=== PATIENT | male | born 1995 | race Caucasian/White ===

== ENCOUNTER 2018-06-06 21:18 | Emergency (ER) | payer BC ==
[2018-06-06] MEDS ORDERED: Cephalexin CAP* 500 MG PO ONE (21:33)
[2018-06-06] MEDS ORDERED: Lidocaine 1%* 5 ML VIAL INJ ONE (21:33)
--- NOTE | 2018-06-06 21:38 | ED ---
Laceration/Wound HPI - HPI Summary HPI Summary: 22-year-old male presents with laceration to his right hand yesterday. He states he put his hand on some glass accidental. He states he removed some glass today. He states he has no medical conditions beside acne. He states tomorrow he will be starting doxycycline 100 milligrams once a day for his acne. He denies any fever. He feels that there is glass is one of the wounds. tetanus is up-to-date. Has full range of motion of his hand. He is right- handed. - History of Current Complaint Stated Complaint: GLASS IN RT HAND Time Seen by Provider: 06/06/18 21:29 Pain Intensity: 2 - Allergy/Home Medications Allergies/Adverse Reactions: Allergies Allergy/AdvReac Type Severity Reaction Status Date / Time shellfish Allergy Unknown Uncoded 06/06/18 21:21 Reaction Details PMH/Surg Hx/FS Hx/Imm Hx Endocrine/Hematology History: Denies: Hx Anticoagulant Therapy Cardiovascular History: Denies: Hx Myocardial Infarction Infectious Disease History: No Infectious Disease History: Denies: Traveled Outside the [place] in Last 30 Days - Family History Known Family History: Negative: Diabetes - Social History Alcohol Use: Occasionally Substance Use Type: Reports: None Smoking Status (MU): Never Smoked Tobacco Review of Systems Negative: Fever Negative: Chest Pain Negative: Shortness Of Breath Positive: Other - laceration right hand All Other Systems Reviewed And Are Negative: Yes Physical Exam Triage Information Reviewed: Yes Vital Signs On Initial Exam: Initial Vitals Temp Pulse Resp BP Pulse Ox 97.8 F 52 16 141/64 98 06/06/18 21:22 06/06/18 21:22 06/06/18 21:22 06/06/18 21:22 06/06/18 21:22 Vital Signs Reviewed: Yes Appearance: Positive: Well-Appearing Skin: Positive: Other - 3 2cm superficial lacerations to palm, 1cm puncture type wound palm, 3cm avulsion to right palm Head/Face: Positive: Normal Head/Face Inspection Eyes: Positive: Normal, Conjunctiva Clear ENT: Positive: Pharynx normal Respiratory/Lung Sounds: Positive: Clear to Auscultation, Breath Sounds Present Cardiovascular: Positive: Normal, RRR Musculoskeletal: Positive: Strength/ROM Intact - right hand, Other - good pulses , capillary refill<2secs Neurological: Positive: Normal Psychiatric: Positive: Normal Diagnostics - Vital Signs Vital Signs Temp Pulse Resp BP Pulse Ox 06/06/18 21:22 97.8 F 52 16 141/64 98 - Laboratory Lab Statement: Any lab studies that have been ordered have been reviewed, and results considered in the medical decision making process. Laceration Repair Course/Dx - Course Course Of Treatment: 22-year-old male presents with laceration to his right hand yesterday. He states he put his hand on some glass accidental. He states he removed some glass today. He states he has no medical conditions beside acne. He states tomorrow he will be starting doxycycline 100 milligrams once a day for his acne. He denies any fever. He feels that there is glass is one of the wounds. tetanus is up-to-date. Has full range of motion of his hand. He is right-handed. On exam has 3 superficial lacerations to the palm. Has one 1 cm puncture laceration with potential foreign body that inject lidocaine and attempted to remove foreign body but was unable to visualize or remove a foreign body. Has an abrasion type laceration also on the right palm. Full range of motion. Neurovascular intact. Told to keep washing area and will have patient continue doxycycline to prevent infection. Patient understands agrees with plan. - Differential Dx Differental Diagnoses: Abrasion, Avulsion, Foreign Body, Laceration - Clinical Impression Provider Diagnoses: Foreign body of right hand Discharge - Sign-Out/Discharge Documenting (check all that apply): Patient Departure - Discharge Plan Condition: Good Disposition: HOME Patient Education Materials: Soft Tissue Foreign Body (ED) Referrals: No Primary Care Phys,NOPCP [Primary Care Provider] - Additional Instructions: Take doxycycline as prescribed, do warm water soaks to area Take ibuprofen or Tylenol for pain every [address] aide on area Return to ED if develop fever, area of redness spreads, or any new or worsening symptoms - Billing Disposition and Condition Condition: GOOD Disposition: Home
[2018-06-06 22:23] VITALS: BP 145/55
== END 2018-06-06 22:14 | disposition home or self-care (01) ==
LOC: ED 21:18
DX: S60.551A Superficial foreign body of right hand, initial encounter (principal); W25.XXXA Contact with sharp glass, initial encounter; Y92.9 Unspecified place or not applicable
CPT/HCPCS: 99282; A9270-GY